=== PATIENT | male | born 1975 | race Caucasian/White ===

== ENCOUNTER 2024-12-02 14:22 | Emergency (ER) | payer MEDICAID, SELFPAY ==
[2024-12-02 14:23] VITALS: BMI 24.0
[2024-12-02 14:36] VITALS: BP 134/88; PULSE 86; RESP 18; TEMP 36.7; O2SAT 97
[2024-12-02] MEDS: LIDOCAINE HCL 1% 20 ML VIAL INFL (15:51)
--- NOTE | 2024-12-02 17:47 | XR_ITS ---
Examination: CT brain head without contrast. 2-D sagittal coronal reconstructions Date and time of exam:December 02, 2024, 1815 hours INDICATIONS: Patient fell today with injury to the head, laceration to the ear, head pain CTDI: vol (mGy):51.9 DLP: (mGycm):1066 Technique: Multiple CT axial sections of the brain have been obtained, 5 mm slice thickness. Contrast has not been administered. 2-D sagittal, coronal reconstructions have been obtained Low dose protocols were performed. One or more of the following dose reduction techniques were used; automated exposure control, adjustment of the mA and/or KV according to patient size, use of iterative reconstruction technique. Findings: No significant ventricular enlargement. Intra-axial or extra-axial hemorrhage density is not seen. No mass effect or midline shift Basal cisterns are not remarkable. Fourth ventricle is midline. Cranial vault intact. Impression: Negative for acute hemorrhage, mass effect or midline shift
--- NOTE | 2024-12-02 18:18 | EDNOTE_ITS ---
ED Ear RME/HPI General Chief complaint: Ear Stated complaint: LAC TO R) EAR Time Seen by Provider: 12/02/24 14:25 Arrival date/time: 12/02/24 14:22 Limitations: no limitations RME / HPI RME / HPI Narrative: 49 year old male with no stated medical history presents to the ED for evaluation of ear injury following a ground level fall today. States he was outside throwing something when he slipped and fell, striking the right side of his head and ear on the edge of a cement cement block. Resulting in laceration. No LOC. No other injuries reported. Related Data Previous Rx's ?Medication ?Instructions ?Recorded cephalexin 250 mg capsule 250 mg PO Q6H POST PROCEDURE #20 12/02/24 caps hydrocodone 5 mg-acetaminophen 325 1 tab PO Q6H PRN pa in #14 tabs 12/02/24 mg tablet Allergies Allergy/AdvReac Type Severity Reaction Status Date / Time No Known Allergies Allergy Verified 12/02/24 14:25 Review of Systems Review of Systems Systems Reviewed: All systems reviewed, normal except as documented Past Medical History Social History SMOKING STATUS: Never smoker ED Exam General Limitations: Present no limitations General appearance: Present alert and in no apparent distress Head Head exam: Present atraumatic, normocephalic and normal inspection Eye Eye exam: Present normal appearance ENT ENT exam: Present other (1.5cm laceration through the cartilage of the right ear, through and through) Neck Neck exam: Present normal inspection Chest Chest inspection: Present normal inspection and symmetric chest wall rise Extremities Exam Extremities exam: Present normal inspection Back Exam Back exam: Present normal inspection Neurological Exam Neurological exam: Present alert, oriented X3 and CN II-XII intact Psychiatric Psychiatric exam: Present normal affect and normal mood Skin Skin exam: Present warm, dry, intact and normal color Course Quality Measures none Orders Category Date Time Status Set Up Suture Tray STAT Care 12/02/24 15:48 Completed Wound Care NOW Care 12/02/24 15:[address] head/brain wo con Stat Exams 12/02/24 17:47 Completed Lidocaine 1% 20 ml [Xylocaine 1% 20 ML] Med 12/02/24 15:48 Discontinued 20 ml INFL X1 ONE Vital Signs Vital signs: Vital Signs Temperature 98.1 F 12/02/24 14:36 Pulse Rate 86 12/02/24 14:36 Respiratory Rate 18 12/02/24 14:36 Blood Pressure 134/88 H 12/02/24 14:36 Pulse Oximetry (%) 97 12/02/24 14:36 Oxygen Delivery Method Room Air 12/02/24 14:36 Pulse ox is 97% on room air which is adequate. PROCEDURES: Laceration Laceration 1: Site: other (Ear) Side (If applicable): right Size (cm): 1.5 Description: linear Depth: [id number] (the cartilage was lacerated and approximated in line, no sutures through cartilage, controlled bleeding, no complications) Local Anesthetic: lidocaine 1% Amount of anesthesia used (mL): 5 Pre-repair: wound explored, irrigated extensively and wound margins revised (Aligned multiple flaps, laceration was complex ) Skin layer closed with: other (ethilon) Suture size (cm): 6-0 Number of sutures: 12 Technique: simple, interrupted Ear MDM Narrative MDM Narrative:: Ngoc Coats am scribing for and in the presence of Dr. Contreras. I obtained consent to suture the ear that was cleaned and irrigated, please refer to procedure note. Patient declined tetanus vaccine. Patient data External records reviewed:: None (No previous ED visits for review ) Clinical information provided by:: patient Social determinants that could affect healthcare access:: none Patient has the following chronic illnesses:: None How is presenting disease/condition affected by chronic disease/condition?: no chronic disease Evaluation data The following diagnostics were reviewed and interpreted by me:: radiology exam(s) Lab and/or radiology exams considered but not ordered:: None Interpretation Summary: Ordering Physician: Yobani Contreras MD Date of Service: 12/02/24 Procedure(s): CT head/brain wo con Accession Number(s): [id number] cc: Yobani Contreras MD; Ari Barraza MD; NO PRIMARY/FAMILY,PHYSICIAN~ Examination: CT brain head without contrast. 2-D sagittal coronal reconstructions Date and time of exam:December 02, 2024, 1815 hours INDICATIONS: Patient fell today with injury to the head, laceration to the ear, head pain CTDI: vol (mGy):51.9 DLP: (mGycm):1066 Technique: Multiple CT axial sections of the brain have been obtained, 5 mm slice thickness. Contrast has not been administered. 2-D sagittal, coronal reconstructions have been obtained Low dose protocols were performed. One or more of the following dose reduction techniques were used; automated exposure control, adjustment of the mA and/or KV according to patient size, use of iterative reconstruction technique. Findings: No significant ventricular enlargement. Intra-axial or extra-axial hemorrhage density is not seen. No mass effect or midline shift Basal cisterns are not remarkable. Fourth ventricle is midline. Cranial vault intact. Impression: Negative for acute hemorrhage, mass effect or midline shift Dictated By: Ari Barraza MD Signed By: <Electronically signed by Ari Barraza MD in [place]> 12/02/24 1825 Medications / Prescriptions Medications or Prescriptions considered but not ordered:: None Medication administrations:: Medication Administration History Discontinued Medications Lidocaine HCl (Lidocaine Hcl 1% 20 Ml Vial) 20 ml INFL X1 ONE Stop: 12/02/24 15:49 Last Admin: 12/02/24 15:51 Dose: 20 ml Documented By: DB See above Consultations Consultation(s) initiated? (list below): No Diagnosis Most likely diagnosis given after review of the tests above:: Ear laceration Admission Indicated Admission indicated?: not indicated Admission Request Was there a request for admission?: No Disposition Plan Disposition Plan: Discharge Discharge Attestation Discharge Attestation: The patient and all family members were given an opportunity to ask questions and understood the discharge instructions. Discharge instructions specifically effects, indications for sooner follow up or return to the emergency department, and the expected course of current diagnosis. Patient condition: Stable Discharge Plan Plan Patient Disposition: HOME (Self Care) Prescriptions/Referrals Prescriptions/Med Rec: New cephalexin 250 mg capsule 250 mg PO Q6H MDD 4 Qty: 20 0RF hydrocodone-acetaminophen 5-325 mg tablet 1 tab PO Q6H MDD 4 PRN (Reason: pain) Qty: 14 0RF Referrals: No Primary/Family,Physician [Primary Care Provider] - In 1 week Problem List Clinical Impression: Laceration of ear Patient/Caregiver Discharge Instructions Print Language: [place] Zealander Stand Alone Forms: [facility] Award Info., Patient Portal Info Letter
== END 2024-12-02 18:35 | disposition home or self-care (01) ==
PROVIDERS: Emergency Provider Family Medicine
DX: S01.311A Laceration without foreign body of right ear, initial encounter (principal); S09.90XA Unspecified injury of head, initial encounter; W01.0XXA Fall on same level from slipping, tripping and stumbling without subsequent striking against object, initial encounter
CPT/HCPCS: 12014; 70450; 99284; J3490